=== PATIENT | male | born 1955 | race Caucasian/White ===

== ENCOUNTER 2018-01-22 09:00 | Outpatient (CLI) | payer OTHER ==
--- NOTE | 2018-01-22 09:19 | RAD ---
RIGHT SHOULDER THREE VIEWS: History: Chronic shoulder pain. FINDINGS: Minimal AC joint arthritic changes are seen and very minimal changes of the glenohumeral joint space. Acromion is laterally downsloping. There is no fracture or other finding. IMPRESSION: Minimal arthritic changes of the right shoulder. POS: [facility]
== END 2018-01-22 09:01 | disposition home or self-care (01) ==
LOC: SCSRAD 09:00
PROVIDERS: ATTEND Internal Medicine
DX: M25.519 Pain in unspecified shoulder (principal); M19.011 Primary osteoarthritis, right shoulder

== ENCOUNTER 2024-01-03 11:55 | Outpatient (CLI) | payer MEDICARE, OTHER | END 2024-01-03 11:56 | disposition home or self-care (01) | LOC: RAD 11:55 | PROVIDERS: ATTEND Chiropractor | DX: M54.50 Low back pain, unspecified (principal); M62.830 Muscle spasm of back; M53.86 Other specified dorsopathies, lumbar region; M47.816 Spondylosis without myelopathy or radiculopathy, lumbar region | CPT/HCPCS: 72110 ==

== ENCOUNTER 2025-02-10 08:45 | Outpatient (CLI) | payer MEDICARE ==
[2025-02-10] MEDS ORDERED: Iopamidol 370 76% 100 ML VIAL ONE (10:35)
== END 2025-02-10 08:46 | disposition home or self-care (01) ==
LOC: CT 08:45
PROVIDERS: ATTEND Internal Medicine
DX: C18.2 Malignant neoplasm of ascending colon (principal); D70.9 Neutropenia, unspecified; Z90.49 Acquired absence of other specified parts of digestive tract
CPT/HCPCS: 71260; 74177; Q9967